=== PATIENT | female | born 1955 | race Caucasian/White ===

== ENCOUNTER 2018-10-13 09:25 | Emergency (ER) | payer OTHER ==
[2018-10-13 09:39] VITALS: BMI 41.9
[2018-10-13] MEDS ORDERED: ALBUTEROL SO4 2.5/IPRATROPIUM 0.5 INH SOL 3 ML VIAL.NEB. NEB ONE ×2 (10:19→10:20)
[2018-10-13 10:25] LABS: BASO % 0.7 % (0-2.0); EOS % 3.1 % (0-4.5); HEMATOCRIT 32.1 % (32.4-45.2); HEMOGLOBIN 9.3 GM/dL (10.7-15.3); LYMPH % 12.5 % (8-40); MCHC 28.9 g/dl (32.0-36.0); MEAN CELL VOLUME 64.4 fl (80-96); MEAN PLT VOLUME 8.7 fl (7.5-11.1); MONO % 6.9 % (3.8-10.2); NEUT % 76.8 % (42.8-82.8); PLATELET COUNT 246 K/MM3 (134-434); RBC 4.99 M/mm3 (3.60-5.2); RDW 19.6 % (11.6-15.6); WHITE BLOOD COUNT 5.5 K/mm3 (4.0-10.0)
[2018-10-13 10:35] LABS: MCH 18.6 pg (25.7-33.7)
--- NOTE | 2018-10-13 10:45 | PDOC ---
History of Present Illness - General Chief Complaint: Chest Pain Stated Complaint: SOB/ CHEST PAIN Time Seen by Provider: 10/13/18 09:55 History Source: Patient Exam Limitations: No Limitations - History of Present Illness Initial Comments: 10/13/18 10:27 62 y/o F with PMHx of COPD (Not on Home O2), DM2, GERD, Liver fibrosis, Hypothyroidism, HTN, HLD, presents with Chest pain. Patient woke in her usual state of health, and shortly after began to have chest pain. She describes the chest pain over her right breast described as a progressive sharp pain, initially 5/10, at worst 10/10. Pain is not reproducible but does worsen with sitting upright from supine or going from sitting upright to supine. The pain has caused difficulty with inspiration and difficulty with lying supine. Denies any associated fevers, chills, nausea, vomiting, diarrhea, constipation, dysuria. Of note patient recently completed an ABx course for a UTI. PCP: Dr. Morgan, Pulmonary: Dr. Friedman, Endocrine: Dr. Carrillo PMHx: COPD (Not on Home O2), DM2, GERD, Liver fibrosis, Hypothyroidism, HTN, HLD PSHx: Tubal ligation, Right hernia repair Allergies: NKDA Social: Denies tobacco, EtOH or drug use. Retired FHx: Mother with Quadruple bypass, Father with lung Ca Presenting Symptoms: Chest Pain Timing/Duration: reports: getting worse Severity/Quality: reports: moderate, sharp Location: reports: other (Right breast) Chest Pain Radiation: reports: back Activities at Onset: reports: none Prior Chest Pain/Cardiac Workup: reports: No prior chest pain Past History - Travel Traveled outside of the country in the last 30 days: No Close contact w/someone who was outside of country & ill: No - Past Medical History Allergies/Adverse Reactions: Allergies Allergy/AdvReac Type Severity Reaction Status Date / Time No Known Allergies Allergy Verified 10/13/18 09:38 Home Medications: Ambulatory Orders Omeprazole [Prilosec (RX)] 20 mg PO DAILY 03/23/13 Motrin PRN 05/01/13 Budesonide/Formoterol Fumarate [Symbicort 160-4.5 Mcg Inhaler] 2 puff IH BID #1 09/15/14 Magnesium 500 mg PO BID 11/10/14 Ubidecarenone [Coq-10] 200 mg PO ASDIR 11/10/14 Cholecalciferol (Vitamin D3) [Vitamin D] 2,000 unit PO DAILY capsule 05/31/15 Albuterol Sulfate Inhaler - [Ventolin HFA Inhaler -] 1 - 2 inh PO Q4H PRN Albuterol Sulfate Inhaler - [Ventolin HFA Inhaler -] 1 puff IH PRN PRN 09/14/15 Ascorbate Calcium [Vitamin C] 500 mg PO DAILY 09/14/15 Glimepiride 2 mg PO ACDIN 09/14/15 Sitagliptin Phos/Metformin HCl [Janumet Xr 100-1,000 mg Tablet] 1 tab PO DAILY 09/14/15 Aspirin [Chaparrita Chewable Aspirin] 81 mg PO DAILY 09/15/15 Canagliflozin/Metformin HCl [Invokamet 150-1,000 mg Tablet] 1 each PO DAILY 04/20 Iron,Carbonyl [Feosol] 45 mg PO DAILY 09/15/15 [place]-3S/Dha/Epa/Fish Oil [Fish Oil 1,200 mg Softgel] 1 each PO DAILY 09/15/15 Cyclobenzaprine HCl [Flexeril 10 mg] 10 mg PO TID PRN #9 tablet 10/13/18 Anemia: Yes (IRON DEFICEINCY ANEMIA) Asthma: Yes (no recent attack) Cancer: No Cardiac Disorders: No CVA: No COPD: Yes CHF: No Dementia: No Diabetes: Yes (iddm) GI Disorders: Yes (gerd,BARRETS ESOPHAGUS,ACID REFLUX) Disorders: No HTN: Yes Hypercholesterolemia: Yes Liver Disease: Yes (CIRRHOSIS --NON ALCOHOLIC) Seizures: No Thyroid Disease: No - Surgical History Abdominal Surgery: Yes (HERNIA, RT. ABDOM.) Appendectomy: No Cardiac Surgery: No Cholecystectomy: No Lung Surgery: No Neurologic Surgery: No Orthopedic Surgery: No - Suicide/Smoking/Psychosocial Hx Smoking Status: No Smoking History: Former smoker Have you smoked in the past 12 months: No Number of Cigarettes Smoked Daily: 0 Cigars Per Day: 0 Information on smoking cessation initiated: No Hx Alcohol Use: No Drug/Substance Use Hx: No Substance Use Type: None Hx Substance Use Treatment: No Cardiac Specific PMH - Complaint Specific PMHX Angina: No Cardiac Arrhythmia: No Cardiac Stent: No GERD: Yes Myocardial Infarction: No Pacemaker: No Pulmonary Embolus: No Valvular Heart Disease: No Peripheral Vascular Disease: No Review of Systems - Review of Systems Able to Perform ROS?: Yes Is the patient limited Vietnamese proficient: No Constitutional: No: Chills, Diaphoresis, Fever HEENTM: No: Blurred Vision Respiratory: Yes: Shortness of Breath. No: Wheezing Cardiac (ROS): Yes: Chest Pain. No: Edema, Palpitations ABD/GI: No: Constipated, Diarrhea, Nausea, Vomiting : No: Dysuria, Hematuria Integumentary: Yes: Rash Neurological: No: Headache, Numbness, Tingling *Physical Exam - Vital Signs Last Vital Signs Temp Pulse Resp BP Pulse Ox 98.3 F 82 20 133/76 95 10/13/18 15:54 10/13/18 15:54 10/13/18 15:54 10/13/18 15:54 10/13/18 15:54 - Physical Exam General Appearance: Yes: Appropriately Dressed HEENT: positive: EOMI, TITUS. negative: Pharyngeal Erythema, Tonsillar Exudate Neck: positive: Supple Respiratory/Chest: positive: Normal Breath Sounds. negative: Accessory Muscle Use, Rales, Rhonchi, Wheezing Cardiovascular: positive: Regular Rhythm, Regular Rate, S1, S2, Edema (1+ in lower extremity, 2+ pedal). negative: JVD, Murmur Gastrointestinal/Abdominal: positive: Normal Bowel Sounds, Soft. negative: Guarding, Rebound, Tenderness Musculoskeletal: negative: CVA Tenderness Integumentary: positive: Other (Excoriations over the B/L anterior shins, Right Chest (due to eczema as per patient)) Neurologic: positive: hardware developer II-XII NML intact, Fully Oriented, Alert, Motor Strength 5/5 Heart Score/ECG Review - History History: Slightly suspicious - Electrocardiogram EKG: Normal - Age Age: 45-65 - Risk Factors Risk Factors Heart Score: Yes Hx Hypercholesterolemia, Yes Hx Hypertension, Yes Hx Diabetes, Yes Positive family hx of cardiac disease Based on the list above the patient has:: >/=3 risk factors or Hx atherosclerotic disease ED Treatment Course - LABORATORY CBC & Chemistry Diagram: 10/13/18 10:03 10/13/18 10:03 - ADDITIONAL ORDERS Additional order review: Laboratory Results 10/13/18 10:03 Sodium 141 Potassium 4.3 Chloride 106 Carbon Dioxide 25 Anion Gap 10 BUN 14.3 Creatinine 0.8 Est GFR (CKD-EPI)AfAm 90.30 Est GFR (CKD-EPI)NonAf 77.91 Random Glucose 195 H Calcium 8.9 Total Bilirubin 0.7 AST 24 ALT 25 Alkaline Phosphatase 47 Troponin I < 0.02 Total Protein 6.2 L Albumin 3.3 L 10/13/18 10:03 RBC 4.99 MCV 64.4 L MCHC 28.9 L RDW 19.6 H MPV 8.7 Neutrophils % 76.8 Lymphocytes % 12.5 D Monocytes % 6.9 Eosinophils % 3.1 Basophils % 0.7 - Medications Given in the ED: ED Medications Discontinued Medications Generic Name Dose Route Start Last Admin Trade Name Freq PRN Reason Stop Dose Admin Acetaminophen 1,000 mg 10/13/18 12:00 10/13/18 12:14 Ofirmev Injection - IVPB 10/13/18 12:01 1,000 mg ONCE ONE Administration Albuterol/Ipratropium 1 amp 10/13/18 10:19 10/13/18 10:24 Duoneb - NEB 10/13/18 10:20 1 amp ONCE ONE Administration Sodium Chloride 1,000 ml 10/13/18 12:09 10/13/18 12:15 Normal Saline - IV 10/13/18 12:10 1,000 ml ONCE ONE Administration Medical Decision Making - Medical Decision Making 10/13/18 10:51 62 y/o F with PMHx of COPD (Not on Home O2), DM2, GERD, Liver fibrosis, Hypothyroidism, HTN, HLD, presents with Chest pain. R/O ACS; More likely musculoskeletal pain Will Check CBC, CMP, Trop, CXR EKG reveals NSR, Low voltage QRS, VR 85, QTc 449 Duoneb tx Will reassess 10/13/18 12:10 CXR: Cardiomegaly. No evidence of vascular congestive changes, pulmonary infiltrates. Left basilar region obscured by the soft tissues of the chest, cardiac silhouette HEART Score of 3. Lab values reveal Microcytic anemia. Trops < 0.02. Will check CTA give pleuritic nature of pain. Trial IV Ofirmev and IV Hydration Ongoing assessment 10/13/18 15:41 Chest CTA: No CT evidence of pulmonary embolism or other acute intrathoracic pathology. Will Rx flexeril. Patient advised to follow up with PCP and return if any worsening of sx's. Patient agreeable to plan, at bedside can take her home. *DC/Admit/Observation/Transfer Diagnosis at time of Disposition: Chest pain Qualifiers: Chest pain type: unspecified Qualified Code(s): R07.9 - Chest pain, unspecified - Discharge Dispostion Disposition: HOME Condition at time of disposition: Stable Decision to Admit order: No - Prescriptions Prescriptions: Cyclobenzaprine HCl [Flexeril 10 mg] 10 mg PO TID PRN #9 tablet PRN Reason: For Chest Pain - Referrals Referrals: Nadeen Morgan MD [Primary Care Provider] - - Patient Instructions Printed Discharge Instructions: DI for Atypical Chest Pain Additional Instructions: You presented to the ER with chest pain. Your lab work and EKG showed that this pain was not cardiac in nature. Please follow up with your PCP--Please call and make an appointment, Your work up is not complete until you do so. Your lab work also revealed you are anemic. Please follow with your PCP for further management. You are being discharged on Flexeril 10mg to be taken up to three times a day as needed for three days. You can also use Tylenol and Alternated with Motrin to control the pain. Continue all your other medications as prescribed. Please return to the ER if you have any signs or symptoms of chest pain, shortness of breath, fever, uncontrollable pain, chills, nausea, vomiting, numbness, tingling, or weakness in any part of your body, changes in vision, or slurred speech. Please return to the ER if symptoms persist, worsen, or new symptoms arise. - Post Discharge Activity
[2018-10-13 10:59] LABS: ALBUMIN 3.3 g/dl (3.4-5.0); ALK PHOS 47 U/L (45-117); ANION GAP 10 MMOL/L (8-16); BILIRUBIN,TOTAL 0.7 mg/dL (0.2-1); BLOOD UREA NITROGEN 14.3 mg/dL (7-18); CALCIUM 8.9 mg/dL (8.5-10.1); CHLORIDE 106 mmol/L (98-107); CO2 25 mmol/L (21-32); CREATININE 0.8 mg/dL (0.55-1.3); GLUCOSE,RANDOM 195 mg/dL (74-106); POTASSIUM 4.3 mmol/L (3.5-5.1); SGOT/AST 24 U/L (15-37); SGPT/ALT 25 U/L (13-61); SODIUM 141 mmol/L (136-145); TOT PROT 6.2 g/dl (6.4-8.2)
--- NOTE | 2018-10-13 11:36 | EKG ---
Test Reason : Blood Pressure : / mmHG Vent. Rate : 085 BPM Atrial Rate : 085 BPM P-R Int : 132 ms QRS Dur : 080 ms QT Int : 378 ms P-R-T Axes : 009 079 076 degrees QTc Int : 449 ms NORMAL SINUS RHYTHM LOW VOLTAGE QRS BORDERLINE ECG WHEN COMPARED WITH ECG OF 23-DEC-2014 10:08, NO SIGNIFICANT CHANGE WAS FOUND Confirmed by HONEY BAUMAN MD ([id number]) on 10/13/2018 11:35:58 AM Referred By: Confirmed By:HONEY BAUMAN MD
[2018-10-13] MEDS ORDERED: ACETAMINOPHEN 1000 MG/100 ML VIAL (NON FORMULARY) IVPB ONE (12:00)
[2018-10-13] MEDS ORDERED: SODIUM CHLORIDE 0.9% 1000 ML INFUS.BAG IV ONE (12:09)
[2018-10-13] MEDS ORDERED: ACETAMINOPHEN INJECTION 100 ML IVPB ONE (12:10)
--- NOTE | 2018-10-13 13:22 | PDOC ---
Documentation entered by Ravi Valle SCRIBE, acting as scribe for Lonnie Heredia MD. Lonnie Heredia MD: This documentation has been prepared by the Leonard truong Elijah, SCRIBE, under my direction and personally reviewed by me in its entirety. I confirm that the documentation accurately reflects all work, treatment, procedures, and medical decision making performed by me. Attending Attestation - Resident Resident Name: Carrie Villanueva - ED Attending Attestation I have performed the following: I have examined & evaluated the patient, The case was reviewed & discussed with the resident, I agree w/resident's findings & plan - HPI HPI: 10/13/18 12:21 CC- Right Sided Pain The patient is a 62 year old female with a significant past medical history of COPD (Not on Home O2), Type 2 Diabetes, GERD, Liver fibrosis, Hypothyroidism, Hypertension, Hyperlipidemia who presents to the ED pain on the right side that is associated with movement. The patient also reports leg swelling. - Physicial Exam PE: 10/13/18 12:16 Vitals: Triage vital signs reviewed General Appearance: No acute distress, well nourished, well developed Head: Atraumatic Neck: Supple; No nuchal rigidity Chest Wall: Nontender Cardiac: Regular rate and rhythm, no murmurs, no rubs, no gallops Lungs: +Pain with deep inspiration on right side. Clear to auscultation bilateral, good air movement bilaterally Abdomen: Soft, nondistended, normal bowel sounds, nontender to palpation Skin: Warm and dry, no rashes or lesions, no rash, no petechiae Psych: Normal mood, normal affect - Medical Decision Making 10/13/18 12:22 The patient is a 62 year old female with a significant past medical history of COPD (Not on Home O2), Type 2 Diabetes, GERD, Liver fibrosis, Hypothyroidism, Hypertension, Hyperlipidemia who presents to the ED pain on the right side that is associated with movement.The plan is to give pain medications and take a CT scan 10/13/18 16:09 Very musculoskeletal reproducible type chest pain. However given pain with inspiration a CTA was ordered which demonstrated no evidence of PE Her EKG was normal sinus rhythm with no ST elevations and no T-wave inversions. Her troponin was negative low suspicion for ACS first PE at this time muscle skeletal discomfort is most likely diagnosis she was provided with Tylenol Motrin and a three-day course of Flexeril. She'll follow-up with her primary care provider this week she'll return to the ED for any severe worsening symptoms or for any concerns. Findings, need for follow-up and strict return instructions discussed with patient.
[2018-10-13 15:55] VITALS: BP 133/76; PULSE 82; TEMP 98.3
== END 2018-10-13 16:03 | disposition home or self-care (01) ==
LOC: JER 09:25
PROC: 3E033NZ Introduction of Analgesics, Hypnotics, Sedatives into Peripheral Vein, Percutaneous Approach (ICD-10-PCS; principal; 2018-10-13)
PROC: 3E0F7GC Introduction of Other Therapeutic Substance into Respiratory Tract, Via Natural or Artificial Opening (ICD-10-PCS; 2018-10-13)
DX: R07.9 Chest pain, unspecified (principal); I10 Essential (primary) hypertension; E78.00 Pure hypercholesterolemia, unspecified; E11.9 Type 2 diabetes mellitus without complications; Z79.84 Long term (current) use of oral hypoglycemic drugs; K21.9 Gastro-esophageal reflux disease without esophagitis; D50.9 Iron deficiency anemia, unspecified; E03.9 Hypothyroidism, unspecified
CPT/HCPCS: 36415; 71045-TC-FY; 71275-TC; 80053; 84484; 85025; 93005; 93010; 94640; 96374; 99282-25; J0131; J7030

== ENCOUNTER 2019-01-19 14:30 | Observation (INO) | payer OTHER | END 2019-01-21 14:52 | disposition home or self-care (01) | LOC: JER 14:30 → JERBED 18:47 → J4S 01-20 23:40 ==